=== PATIENT | male | born 1975 | race Caucasian/White ===

== ENCOUNTER 2018-10-05 00:49 | Emergency (ER) | payer BC ==
[~2018-10-05] VITALS: Ht 185.4 cm; Wt 131.5 kg
[2018-10-05] MEDS ORDERED: LISINOPRIL10 MG (01:03)
[2018-10-05] MEDS ORDERED: VENLAFAXIN37.5 MG/1 (01:04)
[2018-10-05 01:30] LABS: URINE BILIRUBIN NEGATIVE (Negative); URINE BLOOD NEGATIVE (Negative); URINE CLARITY CLEAR; URINE COLOR YELLOW; URINE GLUCOSE-RANDOM NEGATIVE (Negative); URINE KETONES NEGATIVE (Negative); URINE LEUKOCYTES NEGATIVE (Negative); URINE NITRITE NEGATIVE (Negative); URINE PROTEIN NEGATIVE (Negative); URINE SPECIFIC GRAVITY >= 1.030 (1.005-1.030); URINE UROBILINOGEN 0.2 E.U./dl (0.2-1.0)
[2018-10-05] MEDS ORDERED: HYDROCODON-ACE1 EAC8 PO (03:47)
[2018-10-05] MEDS ORDERED: FLEXERIL PO (03:47)
[2018-10-05 06:02] VITALS: BP 134/87
== END 2018-10-05 06:02 | disposition home or self-care (01) ==
LOC: M.ERS 00:49
PROVIDERS: Emergency Medicine
DX: S22.32XA Fracture of one rib, left side, initial encounter for closed fracture (principal); I10 Essential (primary) hypertension; F17.200 Nicotine dependence, unspecified, uncomplicated; W00.0XXA Fall on same level due to ice and snow, initial encounter; Y93.89 Activity, other specified; Y92.89 Other specified places as the place of occurrence of the external cause; Y99.8 Other external cause status

== ENCOUNTER → 2018-10-09 | Outpatient (CLI) | payer BC ==
[~2018-10-09] MED LIST: FLEXERIL PO; HYDROCODON-ACE1 EAC8 PO; LISINOPRIL10 MG; VENLAFAXIN37.5 MG/1
== END ==
LOC: M.ULTRA 10:00
DX: E04.9 Nontoxic goiter, unspecified (principal)